=== PATIENT | female | born 1990 | race American Indian/Alaskan Native ===

== ENCOUNTER 2020-01-30 11:57 | Outpatient (CLI) | payer MEDICAID ==
[2020-01-30 13:01] VITALS: BP 107/66
[2020-01-30] MEDS ORDERED: LACTATED RINGERS 1,000 ML IV SCH (14:00)
[2020-01-30 14:11] LABS: Bilirubin,Urine NEG (Negative); Blood,Urine NEG (Negative); Color,Urine Yellow (Yellow); Mucus,Urine 3+ /HPF
[2020-01-30] MEDS ORDERED: ONDANSETRON 4 MG/2 ML INJ IV PRN (15:04)
[2020-01-30] MEDS ORDERED: D5W/LACTATED RINGERS 1,000 ML IV SCH (16:00)
== END 2020-01-30 17:37 | disposition home or self-care (01) ==
LOC: TRG 11:57 → APU 11:57 → TRG 17:37
PROVIDERS: ATTEND Obstetrics & Gynecology
DX: O21.2 Late vomiting of pregnancy (principal); O26.892 Other specified pregnancy related conditions, second trimester; R25.2 Cramp and spasm; O47.02 False labor before 37 completed weeks of gestation, second trimester; Z3A.26 26 weeks gestation of pregnancy
CPT/HCPCS: 59025; 81001; 96361; 96365; 96366; J2405; J7120; J7121; 96360

== ENCOUNTER 2020-03-13 22:38 | Outpatient (CLI) | payer MEDICAID ==
[2020-03-13 23:33] VITALS: BP 106/69
[2020-03-13] MEDS ORDERED: LACTATED RINGERS 1,000 ML IV ONE (23:46)
[2020-03-14] MEDS ORDERED: TERBUTALINE 1 MG/1 ML INJ SUB-Q ONE ×2 (01:10→01:47)
== END 2020-03-14 02:15 | disposition home or self-care (01) ==
LOC: TRG 22:38 → APU 22:39 → TRG 03-14 02:15
PROVIDERS: ATTEND Obstetrics & Gynecology
DX: O26.893 Other specified pregnancy related conditions, third trimester (principal); R10.9 Unspecified abdominal pain; Z3A.32 32 weeks gestation of pregnancy
CPT/HCPCS: 59025; 96360; 96372; J3105; J7120

== ENCOUNTER 2020-04-22 01:11 | Outpatient (CLI) | payer MEDICAID ==
[2020-04-22 01:41] VITALS: BP 112/67
[2020-04-22 02:48] LABS: Bacteria,Urine 1+ /HPF (Negative); Mucus,Urine 3+ /HPF
[2020-04-22 03:04] LABS: Bilirubin,Urine NEG (Negative); Blood,Urine NEG (Negative); Color,Urine Yellow (Yellow); Protein,Urine <15 mg/dL mg/dL (Negative)
== END 2020-04-22 03:08 | disposition home or self-care (01) ==
LOC: TRG 01:11 → APU 01:29 → TRG 03:08
PROVIDERS: ATTEND Obstetrics & Gynecology
DX: O47.1 False labor at or after 37 completed weeks of gestation (principal); Z3A.39 39 weeks gestation of pregnancy
CPT/HCPCS: 59025; 81001

== ENCOUNTER 2020-04-27 03:10 | Outpatient (CLI) | payer MEDICAID ==
[2020-04-27 03:42] VITALS: BP 105/75
--- NOTE | 2020-04-27 05:41 | Ultrasound Report ---
ULTRASOUND OBSTETRIC LIMITED ULTRASOUND BIOPHYSICAL PROFILE INDICATION / CLINICAL INFORMATION: LATASHA. COMPARISON: None available. FINDINGS: BREATHING MOVEMENT = 2 GROSS BODY MOVEMENT = 2 TONE = 2 QUALITATIVE AMNIOTIC FLUID VOLUME = 2 TOTAL BIOPHYSICAL SCORE = 8/8 HEART RATE (beats per minute): 145 AMNIOTIC FLUID INDEX (cm) = 10.8 (normal = 7-24 cm) PRESENTATION: Cephalic. ADDITIONAL FINDINGS: None. IMPRESSION: 1. Biophysical Score = 8/8 Signer Name: Javier De MD Signed: 04/27/2020 5:37 AM Workstation Name: [email or web address]
--- NOTE | 2020-04-27 08:17 | Event Note ---
Date: 04/27/20 Brief triage note for 04/27/2020: Patient is 38 5/7 weeks gestation, came in for complaint of decreased movement noted while talking to her sister on the telephone for 1 hour. No LOF or VB. Denies pain. Reports "lost my mucous plug last night." Is scheduled for a repeat C/S on Tuesday04/29/2020. Reactive NST. BPP 8/8. LATASHA 10.8. Active movement palpated and reported by patient in triage. SVE CTH. No pelvic pain, no pain on scar, and no regular contractions. Not in labor. No vaginal bleeding or leaking of fluid seen. No discharge seen. Discussed ultrasound and NST results with patient. Patient discharged home with instructions to perform daily movement counting and to come in promptly if any decreased movement, any signs of labor, any pain on scar, or any other problems. Keep scheduled appointment for repeat C/S on Tuesday04/29/2020.
== END 2020-04-27 06:25 | disposition home or self-care (01) ==
LOC: TRG 03:10 → APU 03:11 → TRG 06:25
PROVIDERS: ATTEND Obstetrics & Gynecology
DX: O36.8130 Decreased fetal movements, third trimester, not applicable or unspecified (principal); Z3A.38 38 weeks gestation of pregnancy
CPT/HCPCS: 59025; 76815; 76819